=== PATIENT | male | born 1985 | race Caucasian/White ===

== ENCOUNTER → 2017-01-16 | Outpatient (CLI) | payer OTHER ==
--- NOTE | 2017-01-16 09:55 | US ---
EXAMINATION TYPE: US liver DATE OF EXAM: 01/16/2017 9:43 AM COMPARISON: NONE CLINICAL HISTORY: B18.2 Hep C. Hep C, generalized discomfort, patients states constantly sleeping EXAM MEASUREMENTS: Liver Length: 15.8 cm Gallbladder Wall: 0.2 cm CBD: 0.4 cm CHD: 0.3 cm Right Kidney: 10.4 x 5.9 x 4.3 cm Pancreas: echogenic Liver: wnl Gallbladder: wnl Evidence for sonographic Francisco's sign: neg CBD: wnl CHD: wnl Right Kidney: wnl IMPRESSION: No significant abnormality appreciated.
== END | disposition home or self-care (01) ==
LOC: RADUSWWP 09:13
DX: B18.2 Chronic viral hepatitis C (principal)
CPT/HCPCS: 76705